=== PATIENT | male | born 1970 | race Caucasian/White ===

== ENCOUNTER 2024-04-14 14:32 | Emergency (ER) | payer BC, SELFPAY ==
--- NOTE | 2024-04-14 14:40 | ED.GENMED ---
ED Provider Triage
<Shiraz Peguero PA-C - Last Filed: 04/14/24 14:41>
-
Patient seen by provider in Triage?: Seen in Triage
Attestation: A medical screening examination has been initiated by a qualified medical provider. Based on the assessment performed at this time, it has been determined that an emergent medical condition may exist and the patient has been informed
that further medical evaluation and possible additional diagnostic testing may be needed.
HPI: 53-year-old male presenting to the emergency department for evaluation of right lateral hip/buttock pain after sustaining 2 separate falls while hiking yesterday. Patient initially had pain to the right foot and ankle but states this is not
bothering him. Notes pain is mainly along the right hip area, increases with movement. Did not take anything for pain prior to arrival. X-ray of the right hip/pelvis ordered
GENERAL: Alert , in no apparent distress
EYE: No visual abnormalities.
NECK: Trachea midline
ENT: No visible abnormalities.
LUNGS: No acute respiratory distress
NEUROLOGICAL: Alert and oriented
SKIN: Skin intact. No visible changes.
MUSCULOSKELETAL: Moving extremities normally
PSYCH: Normal and appropriate interaction.
This is a medical evaluation conducted in person to initiate diagnostic evaluation and provide initial therapeutics. Please see further documentation by the treating clinician.
History of Present Illness
<Shiraz Peguero PA-C - Last Filed: 04/14/24 14:41>
General
Chief Complaint: Musculo-Skeletal Complaint
Time Seen by Provider: 04/14/24 17:45
<Franklin Robledo DO - Last Filed: 04/14/24 18:03>
History of Present Illness
History of Present Illness:
TIME OF INITIAL ENCOUNTER: 5:50 PM
HPI: Yesterday, the patient developed severe right posterior thigh pain after he accidentally stepped into a hole while hiking on a mountain bike trail yesterday. He stepped in the same hole on the way down. The pain worsened yesterday and became
excruciating overnight into today. He was given Motrin in triage and reports no significant improvement. He denies any area of ecchymosis
EXAM:
GENERAL: Well appearing but appears somewhat uncomfortable especially with movement at the right lower extremity at the thigh
HEENT: Moist oral mucosa
NEUROLOGIC: Excellent strength all extremities, no obvious coordination deficits
PSYCHIATRIC: Appropriate mental status, normal insight and judgement
EXTREMITIES: The patient does have decreased active range of motion at the right lower extremity proximally related to pain in the posterior right thigh (did not visualize the skin as patient is in a common area), there is a focal area of soft
tissue tenderness in the proximal posterior thigh muscle
SKIN: No rash, no lesions
NUMBER AND COMPLEXITY OF PROBLEMS ADDRESSED AT THE ENCOUNTER
� Chronic conditions affecting care: Asthma, former smoker, CAD, diabetes
� Acute Exacerbation and/or Progression of Chronic Illness: This is an acute problem
� Differential Diagnosis includes: Hamstring strain, hamstring tear, hip fracture very unlikely, hip flexor tendon pathology unlikely, bursitis, osteoarthritis
AMOUNT AND/OR COMPLEXITY OF DATA TO BE REVIEWED AND ANALYZED
� I performed an independent evaluation of and my interpretation is:
EKG:
CT:
X-rays: X-ray of the right hip shows no fracture/no pelvis fracture
Laboratory Studies:
Other:
� Review of other/old records: The patient had an x-ray in 2021 of his low back which degenerative disease
� Clinical information was obtained by an independent historian: I spoke to at bedside
� Prescriptions/Medications Considered but not given:
� Further testing considered but not performed: No clear indication for MRI through the Emergency Department at this time.
RISK OF COMPLICATIONS AND/OR MORBIDITY OR MORTALITY OF PATIENT MANAGEMENT
� Social determinants of health affecting care:
� Discussion with other providers:
� Escalation of care including admission/observation vs risk of discharge considered: The patient had NSAIDs earlier but this has not improved his symptoms. Will start narcotic analgesia. I strongly recommend that he follows up
with Ortho.
ANY OTHER UPDATES:
Past History
<Shiraz Peguero PA-C - Last Filed: 04/14/24 14:41>
Past History
ED Past Medical History: Asthma, CAD and NIDDM
ED Past Surgical History: Cardiac and Other
Social History
Tobacco: Former smoker
Family History
Family History: Other (not applicable)
Phy Exam
<Franklin Robledo DO - Last Filed: 04/14/24 18:03>
Physical Exam
Physical Exam:
See HPI
Course
<Shiraz Peguero PA-C - Last Filed: 04/14/24 14:41>
Orders/Labs/Results
Orders:
Orders
04/14/24 14:40
CR Hip - RT w/wo Pel 2-3 Vw* Urgent
Comment:
Reason For Exam: fall twice while hiking, pain
Include a pelvis x-ray?: Yes
04/14/24 14:41
Ibuprofen [Motrin] 600 mg PO NOW STA
04/14/24 14:42
Ibuprofen [Motrin] 600 mg .ROUTE .STK-MED ONE
04/14/24 17:54
Oxycodone/Acetaminophen [Percocet 5/325] 2 tablet PO NOW STA
Vital Signs
Initial and Last Documented VS:
Initial Vital Signs
Temp Pulse Resp BP Pulse Ox
36.9 C 95 20 198/100 98
04/14/24 14:46 04/14/24 14:46 04/14/24 14:46 04/14/24 14:46 04/14/24 14:46
Last Documented Vital Signs
Temp Pulse Resp BP Pulse Ox
36.9 C 95 20 198/100 98
04/14/24 14:46 04/14/24 14:46 04/14/24 14:46 04/14/24 14:46 04/14/24 14:46
<Franklin Robledo, DO - Last Filed: 04/14/24 18:03>
Orders/Labs/Results
Orders:
Orders
04/14/24 14:40
CR Hip - RT w/wo Pel 2-3 Vw* Urgent
Comment:
Reason For Exam: fall twice while hiking, pain
Include a pelvis x-ray?: Yes
04/14/24 14:41
Ibuprofen [Motrin] 600 mg PO NOW STA
04/14/24 14:42
Ibuprofen [Motrin] 600 mg .ROUTE .STK-MED ONE
04/14/24 17:54
Oxycodone/Acetaminophen [Percocet 5/325] 2 tablet PO NOW STA
Vital Signs
Initial and Last Documented VS:
Initial Vital Signs
Temp Pulse Resp BP Pulse Ox
36.9 C 95 20 198/100 98
04/14/24 14:46 04/14/24 14:46 04/14/24 14:46 04/14/24 14:46 04/14/24 14:46
Last Documented Vital Signs
Temp Pulse Resp BP Pulse Ox
36.9 C 95 20 198/100 98
04/14/24 14:46 04/14/24 14:46 04/14/24 14:46 04/14/24 14:46 04/14/24 14:46
<Franklin Robledo DO - Last Filed: 04/14/24 18:03>
*Critical Care Note
Total Time (30-74mins, 75-104mins- exclusive of procedures): Not Applicable
ED Attending Note
<Shiraz Peguero PA-C - Last Filed: 04/14/24 14:41>
-
Portions of this chart may have been created with voice recognition software.� Occasional wrong word or��sound alike� substitutions may have occurred due to the inherent limitations of voice recognition software.
Discharge Plan
Departure
Patient Disposition: Home (Routine Discharge)
Date of Disposition: 04/14/24
Time of Disposition: 17:54
Patient with high blood pressure during this ER visit?: Yes
Discharge Problem:
Hamstring injury
Instructions: Muscle Strain (DC), BLOOD PRESSURE
Prescriptions:
New
oxycodone-acetaminophen [Percocet] 5-325 mg tablet
1 - 2 tab PO Q6HPRN PRN (Reason: pain) Qty: 14 0RF
No Action
atorvastatin 40 MG tablet
40 mg PO QPM Qty: 90 3RF
metoprolol succinate 50 MG tablet extended release 24 hr
50 mg PO DAILY Qty: 90 3RF
Rx Instructions:
Ok to take at night if you have fatigue
aspirin 81 MG tablet,delayed release (DR/EC)
81 mg PO DAILY Qty: 0 0RF
pantoprazole 40 MG tablet,delayed release (DR/EC)
40 mg PO DAILY Qty: 90 3RF
prasugrel HCl 10 MG tablet
10 mg PO DAILY Qty: 90 3RF
nitroglycerin 0.4 MG tablet, sublingual
0.4 mg sublingual [id number] PRN (Reason: chest pain) Qty: 30 2RF
hydrocodone-acetaminophen 1 TABLET tablet
1 tab PO Q4HPRN PRN (Reason: pain) Qty: 6 0RF
oxycodone 5 mg tablet
5 mg PO Q6H PRN (Reason: pain) Qty: 10 0RF
tizanidine 4 mg tablet
4 mg PO HS PRN (Reason: muscle spasticity) Qty: 10 0RF
(DME) blood-glucose meter Kit
See Rx Instructions .Route Qty: 1 0RF
Rx Instructions:
As directed
Referrals:
Bruno Ball, [Family Provider] -
Sheldon Ivey MD [Active] - Follow up in 2-3 days
Activity Restrictions/Additional Instructions:
Your symptoms appear to be related more to the hamstring as opposed to a bony issue however, I would recommend you follow-up with an orthopedist such as Dr. Ivey. X-rays of the right hip and pelvis are unremarkable. If you take Percocet, I
recommend you take something like MiraLAX to help with constipation. Use crutches to help get around. You can also take [id number] ibuprofen for anti-inflammatory relief as they work differently than Percocet does. Your blood pressure is
also very high here which is at least partially related to the pain but I do recommend that you follow with your primary care doctor for reassessment. If you are still taking aspirin/Effient, these could affect the bleeding and may make bruising in
the area worse. However I generally would recommend to continue these medications given the known vascular disease.
Interventions
Interventions:
*Risk Screen - Suicide Last Done: 04/14/24 14:46
*General Assessment Last Done: 04/14/24 16:55
*Neglect/Abuse Screening Last Done: 04/14/24 16:55
*ED COVID-19 Vaccine History Last Done: 04/14/24 16:55
ED-Musculoskeletal Assessment Last Done: 04/14/24 16:55
Discharge Date and Time
Print Language: CONGOLESE
[2024-04-14] MEDS: MOTRIN 600 MG PO (14:45)
[2024-04-14 14:46] VITALS: BP 198/100
[2024-04-14] MEDS: PERCOCET 5/325 2 TABLET PO (18:00)
== END 2024-04-14 18:30 | disposition home or self-care (01) ==
LOC: EMR 14:32
PROVIDERS: EMERGENCY PHYSICIAN Emergency Medicine; FAMILY PHYSICIAN Family Medicine
DX: S76.801A Unspecified injury of other specified muscles, fascia and tendons at thigh level, right thigh, initial encounter (principal); W19.XXXA Unspecified fall, initial encounter; Y93.01 Activity, walking, marching and hiking; E11.9 Type 2 diabetes mellitus without complications; J45.909 Unspecified asthma, uncomplicated; I25.10 Atherosclerotic heart disease of native coronary artery without angina pectoris; Z87.891 Personal history of nicotine dependence
CPT/HCPCS: 99283; 73502

== ENCOUNTER → 2024-12-30 09:00 | Outpatient (REF) | payer BC, SELFPAY | LOC: DHSLP 09:00 | PROVIDERS: ATTENDING PHYSICIAN Nurse Practitioner | DX: G47.33 Obstructive sleep apnea (adult) (pediatric) (principal); R09.02 Hypoxemia | CPT/HCPCS: 95800 ==